=== PATIENT | male | born 1980 | race Two or more races ===

== ENCOUNTER 2017-03-18 17:52 | Emergency (ER) | payer MEDICAID, OTHER ==
[2017-03-18 17:59] VITALS: RESP 16; TEMP 97.3
--- NOTE | 2017-03-18 18:37 | EDPHY ---
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 No paresthesia. No extensor deficits. Tetanus is out-of-date. History of controlled diabetes. PHYSICAL EXAM (Prior to examination, patient consented to physical exam, hands were washed and my usual and customary physical exam procedures followed) 1) GENERAL: Well-developed, well-nourished, alert and oriented. Appears to be in no acute distress. 2) HEAD: Normocephalic 3) HEENT: sclera anicteric 4) LUNGS: Breathing comfortably. 5) SKIN: 2 cm well-demarcated laceration overlying the 2nd metacarpal dorsal aspect of hand 6) MUSCULOSKELETAL: no extensor deficits. 7) NEUROLOGIC: Full sensation distally Smoking Status: Never smoked Constitutional: Initial Vital Signs Temperature (C) 36.3 C 03/18/17 17:57 Heart Rate 85 03/18/17 17:57 Respiratory Rate 16 03/18/17 17:57 Blood Pressure 115/84 H 03/18/17 17:57 O2 Sat (%) 95 03/18/17 17:57 O2 Delivery Mode Room Air Allergies/Adverse Reactions: tree nut [Nuts] Allergy (Verified 03/18/17 18:00) flour Allergy (Uncoded 03/18/17 18:00) Home Medications: Medication Instructions Recorded Acetaminophen [Tylenol ES 500 mg 1,000 mg PO TID PRN 08/03/15 (*)] Albuterol [Proventil Inhaler HFA 2 puffs IH Q4 PRN 08/03/15 (*)] Beclomethasone Qvar 80 [Qvar 80 1 puffs IH BIDI 08/03/15 (*)] Loratadine 10 mg PO DAILY 08/03/15 Insulin Glargine [Lantus 100 35 units SC HS #0 ml 08/06/15 UNITS/ML (*)] Insulin Lispro [humALOG LISPRO 100 5 unit SC TIDMEAL #0 unit 08/06/15 units/ml (*)] Cephalexin [Keflex] 500 mg PO QID 5 Days 03/18/17 ED Images - Extremities Hands Back Left/Right: 1 - Laceration 2 cm MDM/Departure - MDM Procedures: Procedure: Laceration repair. I explained the indications, risks and benefits for both laceration repair and anesthetic administration. Verbal consent was obtained from the patient and parent. The laceration on the location was anesthetized using 0.5% bupivicaine without epinephrine . After anesthetic administered the patient was observed for a period of time and had no apparent adverse effects. The wound was cleaned, prepped, draped in normal sterile fashion and explored to its base. No foreign body seen, no foreign bodies palpated. There were no deep structures involved. No tendon injury was identified. The wound was repaired with 4 simple interrupted 5 O Prolene suture. The wound repair was simple. The procedure was performed by myself. Patient has been informed that scarring will occur, although efforts have been made to minimize this. Medications Given: Discontinued Medications Diphtheria/Tetanus/Acell Pertussis (Boostrix) 0.5 ml IM .ONCE ONE Stop: 03/18/17 18:39 Last Admin: 03/18/17 18:52 Dose: 0.5 ml - Depart Disposition: Home, Routine, Self-Care Clinical Impression: Laceration of hand Qualifiers: Encounter type: initial encounter Foreign body presence: without foreign body Laterality: right Qualified Code(s): S61.411A - Laceration without foreign body of right hand, initial encounter Condition: Good Instructions: Laceration (ED) Additional Instructions: Return to the ER if you develop redness, swelling, discharge, warmth to the wound, red streaks going up your arm , or any other symptoms that concern you. Stand Alone Forms: Work Comp Follow Up Prescriptions: Cephalexin [Keflex] 500 mg PO QID 5 Days Referrals: Return, to the ER in 10 days for suture removal [Other] - As per Instructions
[2017-03-18] MEDS ORDERED: TDAP ADULT 0.5 ML INJ (BOOSTRIX) IM ONE (18:38)
[2017-03-18 19:37] VITALS: BP 118/76; PULSE 80; O2SAT 96
== END 2017-03-18 19:38 | disposition home or self-care (01) ==
PROC: 0HQFXZZ Repair Right Hand Skin, External Approach (ICD-10-PCS; principal; 2017-03-18)
DX: S61.411A Laceration without foreign body of right hand, initial encounter (principal); Z23 Encounter for immunization; W22.8XXA Striking against or struck by other objects, initial encounter